=== PATIENT | female | born 1940 | race Caucasian/White ===

== ENCOUNTER 2021-03-18 04:06 | Emergency (ER) | payer MEDICARE ==
[2021-03-18] MEDS ORDERED: Boostrix 0.5 ML (Tdap) VIAL ONE (04:53)
[2021-03-18] MEDS ORDERED: Bacitracin 1 PK ONE (04:53)
== END 2021-03-18 06:20 | disposition home or self-care (01) ==
LOC: MADERS 04:06
DX: S40.021A Contusion of right upper arm, initial encounter (principal); E03.9 Hypothyroidism, unspecified; K21.9 Gastro-esophageal reflux disease without esophagitis; I11.0 Hypertensive heart disease with heart failure; I50.9 Heart failure, unspecified; Z79.899 Other long term (current) drug therapy; W19.XXXA Unspecified fall, initial encounter
CPT/HCPCS: 70450; 72125; 90471; 90715

== ENCOUNTER 2021-06-03 18:57 | Emergency (ER) | payer MEDICARE ==
[2021-06-03 20:57] LABS: #Basophils 0.1 thou/uL (0.0-0.2); #Lymphocytes 1.9 thou/uL (1.20-3.40); #Monocytes 0.8 thou/uL (0.11-0.59); #Neutrophils 12.8 thou/uL (1.40-6.50); %Basophils 0.6 % (0.0-1.0); %Eosinophils 0.1 % (0.0-10.0); %Monocytes 4.9 % (0.0-10.0); %Neutrophils 82.5 % (42.0-75.0); Burr Cells SLIGHT = 2-5 cells (100X) (0-1/hpf); Hemoglobin 12.6 g/dL (12.0-16.0); MDiff Complete? YES; Macrocytosis SLIGHT = 6-15 cells (100X) (0-5/hpf); Mean Corpuscular HGB CONC 33.3 g/dL (32.0-36.0); Mean Corpuscular Hemoglobin 35.7 pg (27.0-31.0); Mean Corpuscular Volume 107.2 fL (78.0-98.0); Mean Platelet Volume 8.4 fL (7.4-10.4); PTT 23.4 sec (22.9-36.1); Platelet Count 123 thou/uL (130-400); Platelet Morphology Comment Appears Adequate; Prothrombin Time 13.3 sec (12.0-14.7); RBC Distribution Width 14.7 % (11.5-14.5); Red Blood Cell (RBC) Count 3.53 mill/uL (4.20-5.40); White Blood Cell (WBC) Count 15.6 thou/uL (4.8-10.8)
[2021-06-03 21:07] LABS: ALT (SGPT) 24 U/L (8-55); AST (SGOT) 34 U/L (5-34); Albumin 3.5 g/dL (3.4-4.8); Alkaline Phosphatase 112 U/L (40-110); Anion Gap 16 mmol/L (10-20); BUN (Urea Nitrogen) 13 mg/dL (9.8-20.1); Bilirubin, Total 1.1 mg/dL (0.2-1.2); Calc. Creatinine Clearance 0 mL/min (70-130); Calcium 9.4 mg/dL (7.8-10.44); Carbon Dioxide 28 mmol/L (23-31); Chloride 99 mmol/L (98-107); Globulin 3.6 g/dL (2.4-3.5); Glucose 116 mg/dL (83-110); Potassium 3.9 mmol/L (3.5-5.1); Protein, Total 7.1 g/dL (5.8-8.1); Sodium 139 mmol/L (136-145)
[2021-06-03 21:49] LABS: SARS-CoV-2 NAA Rapid Test Not Detected (NotDetected)
[2021-06-03 23:08] LABS: Bilirubin Negative (Negative); Blood, Urine Negative (Negative); Glucose, Urine (Dipstick) Negative (Negative); Ketone, Urine Negative (Negative); Leukocyte Trace (Negative); Nitrite Negative (Negative); Protein, Urine (Dipstick) Negative (Neg-Trace); Urobilinogen 0.2 mg/dL (Less than 2); pH, Urine 8.5 (5.0-9.0)
[2021-06-03 23:09] LABS: Bacteria/HPF 2+ HPF (None Seen); Clarity Slightly Cloudy (Clear); RBC/HPF 0-3 HPF (0-3)
== END 2021-06-03 23:06 | disposition short-term general hospital (02) ==
LOC: MADERS 18:57
DX: S06.300A Unspecified focal traumatic brain injury without loss of consciousness, initial encounter (principal); S72.002A Fracture of unspecified part of neck of left femur, initial encounter for closed fracture; S60.222A Contusion of left hand, initial encounter; R60.0 Localized edema; E03.9 Hypothyroidism, unspecified; K21.9 Gastro-esophageal reflux disease without esophagitis; I11.0 Hypertensive heart disease with heart failure; I50.9 Heart failure, unspecified; F17.200 Nicotine dependence, unspecified, uncomplicated; Z79.02 Long term (current) use of antithrombotics/antiplatelets; Z79.899 Other long term (current) drug therapy; W18.30XA Fall on same level, unspecified, initial encounter
CPT/HCPCS: 51702; 70450; 72125; 72170; 72220; 80053; 81003; 81015; 85025; 85610; 85730; U0002

== ENCOUNTER 2021-06-11 15:40 | Inpatient (IN) | payer MEDICARE ==
[2021-06-11] MEDS: Acetaminophen 500 MG TAB PO SCH (18:08)
[2021-06-11] MEDS: Donepezil HCl 10 MG TAB PO SCH (20:12)
[2021-06-11] MEDS: Carvedilol 6.25 MG TAB PO SCH (20:12)
[2021-06-11] MEDS: Gabapentin 300 MG CAP PO SCH (20:12)
[2021-06-11] MEDS: Furosemide 40 MG TAB PO SCH (20:12)
[2021-06-12] MEDS: Acetaminophen 500 MG TAB PO SCH ×5 (00:42→23:48)
[2021-06-12] MEDS: traMADol HCl 50 MG TAB PO PRN ×3 (02:54→20:50)
[2021-06-12] MEDS: Levothyroxine Sodium 75 MCG TAB PO SCH (05:51)
[2021-06-12] MEDS ORDERED: FLU VACC QS2021-22(65YR UP)/PF 240 MCG/0.7 ML SYRINGE IM ONE (09:00)
[2021-06-12] MEDS: Atorvastatin Calcium 40 MG TAB PO SCH (09:34)
[2021-06-12] MEDS: Clopidogrel Bisulfate 75 MG TAB PO SCH (09:34)
[2021-06-12] MEDS: Carvedilol 6.25 MG TAB PO SCH ×2 (09:34→20:45)
[2021-06-12] MEDS: Potassium Chloride 10 MEQ TAB PO SCH (09:34)
[2021-06-12] MEDS: Furosemide 40 MG TAB PO SCH ×2 (09:35→20:58)
[2021-06-12] MEDS: Citalopram 20 MG TAB PO SCH (09:35)
[2021-06-12] MEDS: Famotidine 20 MG TAB PO SCH (10:03)
[2021-06-12 10:38] LABS: Anion Gap 11 mmol/L (10-20); BUN (Urea Nitrogen) 9 mg/dL (9.8-20.1); Calc. Creatinine Clearance 90 mL/min (70-130); Calcium 8.4 mg/dL (7.8-10.44); Carbon Dioxide 29 mmol/L (23-31); Chloride 105 mmol/L (98-107); Glucose 118 mg/dL (83-110); Potassium 3.8 mmol/L (3.5-5.1); Sodium 141 mmol/L (136-145)
[2021-06-12 10:44] LABS: #Basophils 0.1 thou/uL (0.0-0.2); #Eosinphils 0.2 thou/uL (0.0-0.7); #Lymphocytes 2.6 thou/uL (1.20-3.40); #Monocytes 0.8 thou/uL (0.11-0.59); #Neutrophils 5.7 thou/uL (1.40-6.50); %Basophils 0.6 % (0.0-1.0); %Eosinophils 1.9 % (0.0-10.0); %Lymphocytes 28.2 % (21.0-51.0); %Monocytes 8.2 % (0.0-10.0); %Neutrophils 61.1 % (42.0-75.0); Hemoglobin 8.3 g/dL (12.0-16.0); MDiff Complete? YES; Macrocytosis SLIGHT = 6-15 cells (100X) (0-5/hpf); Mean Corpuscular HGB CONC 34.2 g/dL (32.0-36.0); Mean Corpuscular Hemoglobin 36.5 pg (27.0-31.0); Mean Corpuscular Volume 106.9 fL (78.0-98.0); Mean Platelet Volume 7.2 fL (7.4-10.4); Platelet Count 190 thou/uL (130-400); Platelet Morphology Comment Appears Adequate; RBC Distribution Width 16.3 % (11.5-14.5); Red Blood Cell (RBC) Count 2.27 mill/uL (4.20-5.40); White Blood Cell (WBC) Count 9.4 thou/uL (4.8-10.8)
[2021-06-12] MEDS ORDERED: Ferrous Sulfate 325 MG TAB PO SCH (11:00)
[2021-06-12] MEDS: Ferrous Sulfate 325 MG TAB PO SCH (11:27)
[2021-06-12] MEDS: Donepezil HCl 10 MG TAB PO SCH (20:46)
[2021-06-12] MEDS: Gabapentin 300 MG CAP PO SCH (20:49)
[2021-06-13] MEDS: Acetaminophen 500 MG TAB PO SCH ×3 (05:58→17:27)
[2021-06-13] MEDS: Levothyroxine Sodium 75 MCG TAB PO SCH (05:58)
[2021-06-13] MEDS: Potassium Chloride 10 MEQ TAB PO SCH (08:41)
[2021-06-13] MEDS: Citalopram 20 MG TAB PO SCH (08:42)
[2021-06-13] MEDS: Carvedilol 6.25 MG TAB PO SCH ×2 (08:42→20:28)
[2021-06-13] MEDS: Furosemide 40 MG TAB PO SCH ×2 (08:42→20:29)
[2021-06-13] MEDS: Clopidogrel Bisulfate 75 MG TAB PO SCH (08:42)
[2021-06-13] MEDS: Famotidine 20 MG TAB PO SCH (08:42)
[2021-06-13] MEDS: Atorvastatin Calcium 40 MG TAB PO SCH (08:42)
[2021-06-13] MEDS: traMADol HCl 50 MG TAB PO PRN (16:25)
[2021-06-13] MEDS: Donepezil HCl 10 MG TAB PO SCH (20:24)
[2021-06-13] MEDS: Gabapentin 300 MG CAP PO SCH (20:24)
[2021-06-13 23:35] LABS: SARS-CoV-2 PCR by NAA Not Detected (NotDetected)
[2021-06-14] MEDS: Acetaminophen 500 MG TAB PO SCH ×5 (00:20→23:58)
[2021-06-14] MEDS: traMADol HCl 50 MG TAB PO PRN ×2 (05:32→15:54)
[2021-06-14] MEDS: Levothyroxine Sodium 75 MCG TAB PO SCH (05:32)
[2021-06-14] MEDS: Atorvastatin Calcium 40 MG TAB PO SCH (08:36)
[2021-06-14] MEDS: Ferrous Sulfate 325 MG TAB PO SCH (08:37)
[2021-06-14] MEDS: Citalopram 20 MG TAB PO SCH (08:37)
[2021-06-14] MEDS: Carvedilol 6.25 MG TAB PO SCH ×2 (08:37→20:36)
[2021-06-14] MEDS: Clopidogrel Bisulfate 75 MG TAB PO SCH (08:37)
[2021-06-14] MEDS: Furosemide 40 MG TAB PO SCH ×2 (08:37→20:36)
[2021-06-14] MEDS: Famotidine 20 MG TAB PO SCH (08:37)
[2021-06-14] MEDS: Potassium Chloride 10 MEQ TAB PO SCH (08:37)
[2021-06-14] MEDS ORDERED: Methotrexate Sodium 2.5 MG TAB PO SCH ×2 (09:00)
[2021-06-14] MEDS: Gabapentin 300 MG CAP PO SCH (20:36)
[2021-06-14] MEDS: Donepezil HCl 10 MG TAB PO SCH (20:36)
[2021-06-15] MEDS: Acetaminophen 500 MG TAB PO SCH ×3 (05:59→17:24)
[2021-06-15] MEDS: Levothyroxine Sodium 75 MCG TAB PO SCH (06:01)
[2021-06-15] MEDS: Potassium Chloride 10 MEQ TAB PO SCH (08:56)
[2021-06-15] MEDS: Carvedilol 6.25 MG TAB PO SCH ×2 (08:56→20:45)
[2021-06-15] MEDS: Ferrous Sulfate 325 MG TAB PO SCH (08:56)
[2021-06-15] MEDS: Citalopram 20 MG TAB PO SCH (08:56)
[2021-06-15] MEDS: Furosemide 40 MG TAB PO SCH ×2 (08:56→20:45)
[2021-06-15] MEDS: Atorvastatin Calcium 40 MG TAB PO SCH (08:56)
[2021-06-15] MEDS: Famotidine 20 MG TAB PO SCH (08:57)
[2021-06-15] MEDS: Clopidogrel Bisulfate 75 MG TAB PO SCH (08:57)
[2021-06-15] MEDS: Donepezil HCl 10 MG TAB PO SCH (20:45)
[2021-06-15] MEDS: Gabapentin 300 MG CAP PO SCH (20:46)
[2021-06-16] MEDS: Acetaminophen 500 MG TAB PO SCH ×4 (00:11→16:59)
[2021-06-16] MEDS: Levothyroxine Sodium 75 MCG TAB PO SCH (05:54)
[2021-06-16] MEDS: traMADol HCl 50 MG TAB PO PRN ×2 (05:54→13:03)
[2021-06-16] MEDS: Potassium Chloride 10 MEQ TAB PO SCH (08:26)
[2021-06-16] MEDS: Atorvastatin Calcium 40 MG TAB PO SCH (08:26)
[2021-06-16] MEDS: Ferrous Sulfate 325 MG TAB PO SCH (08:26)
[2021-06-16] MEDS: Furosemide 40 MG TAB PO SCH ×2 (08:26→21:46)
[2021-06-16] MEDS: Famotidine 20 MG TAB PO SCH (08:26)
[2021-06-16] MEDS: Carvedilol 6.25 MG TAB PO SCH ×2 (08:26→21:45)
[2021-06-16] MEDS: Citalopram 20 MG TAB PO SCH (08:26)
[2021-06-16] MEDS: Clopidogrel Bisulfate 75 MG TAB PO SCH (08:27)
[2021-06-16] MEDS ORDERED: Methotrexate Sodium 2.5 MG TAB PO SCH (09:00)
[2021-06-16] MEDS: Donepezil HCl 10 MG TAB PO SCH (21:46)
[2021-06-16] MEDS: Gabapentin 300 MG CAP PO SCH (21:46)
[2021-06-17] MEDS: Acetaminophen 500 MG TAB PO SCH ×4 (00:03→17:31)
[2021-06-17] MEDS: Levothyroxine Sodium 75 MCG TAB PO SCH (06:11)
[2021-06-17] MEDS: Famotidine 20 MG TAB PO SCH (09:21)
[2021-06-17] MEDS: Atorvastatin Calcium 40 MG TAB PO SCH (09:21)
[2021-06-17] MEDS: Furosemide 40 MG TAB PO SCH ×2 (09:21→21:33)
[2021-06-17] MEDS: Carvedilol 6.25 MG TAB PO SCH ×2 (09:21→21:33)
[2021-06-17] MEDS: Citalopram 20 MG TAB PO SCH (09:21)
[2021-06-17] MEDS: Ferrous Sulfate 325 MG TAB PO SCH (09:21)
[2021-06-17] MEDS: Clopidogrel Bisulfate 75 MG TAB PO SCH (09:21)
[2021-06-17] MEDS: Potassium Chloride 10 MEQ TAB PO SCH (09:22)
[2021-06-17] MEDS: Gabapentin 300 MG CAP PO SCH (21:33)
[2021-06-17] MEDS: Donepezil HCl 10 MG TAB PO SCH (21:33)
[2021-06-18] MEDS: Acetaminophen 500 MG TAB PO SCH ×5 (00:34→23:31)
[2021-06-18] MEDS: Levothyroxine Sodium 75 MCG TAB PO SCH (05:54)
[2021-06-18] MEDS: Ferrous Sulfate 325 MG TAB PO SCH (09:15)
[2021-06-18] MEDS: Atorvastatin Calcium 40 MG TAB PO SCH (09:15)
[2021-06-18] MEDS: Famotidine 20 MG TAB PO SCH (09:15)
[2021-06-18] MEDS: Potassium Chloride 10 MEQ TAB PO SCH (09:15)
[2021-06-18] MEDS: Furosemide 40 MG TAB PO SCH ×2 (09:16→20:23)
[2021-06-18] MEDS: Clopidogrel Bisulfate 75 MG TAB PO SCH (09:16)
[2021-06-18] MEDS: Citalopram 20 MG TAB PO SCH (09:16)
[2021-06-18] MEDS: Carvedilol 6.25 MG TAB PO SCH ×2 (09:16→20:23)
[2021-06-18] MEDS: Donepezil HCl 10 MG TAB PO SCH (20:22)
[2021-06-18] MEDS: Gabapentin 300 MG CAP PO SCH (20:23)
[2021-06-19] MEDS: Levothyroxine Sodium 75 MCG TAB PO SCH (05:58)
[2021-06-19] MEDS: Acetaminophen 500 MG TAB PO SCH ×3 (05:58→17:59)
[2021-06-19] MEDS: Ferrous Sulfate 325 MG TAB PO SCH (08:40)
[2021-06-19] MEDS: Atorvastatin Calcium 40 MG TAB PO SCH (08:40)
[2021-06-19] MEDS: Citalopram 20 MG TAB PO SCH (08:41)
[2021-06-19] MEDS: Clopidogrel Bisulfate 75 MG TAB PO SCH (08:41)
[2021-06-19] MEDS: Carvedilol 6.25 MG TAB PO SCH ×2 (08:41→20:45)
[2021-06-19] MEDS: Furosemide 40 MG TAB PO SCH ×2 (08:41→20:45)
[2021-06-19] MEDS: Famotidine 20 MG TAB PO SCH (08:41)
[2021-06-19] MEDS: Potassium Chloride 10 MEQ TAB PO SCH (08:41)
[2021-06-19] MEDS: Gabapentin 300 MG CAP PO SCH (20:45)
[2021-06-19] MEDS: Donepezil HCl 10 MG TAB PO SCH (20:45)
[2021-06-20] MEDS: Acetaminophen 500 MG TAB PO SCH ×5 (00:03→23:38)
[2021-06-20] MEDS: Levothyroxine Sodium 75 MCG TAB PO SCH (05:43)
[2021-06-20] MEDS: Potassium Chloride 10 MEQ TAB PO SCH (09:01)
[2021-06-20] MEDS: Atorvastatin Calcium 40 MG TAB PO SCH (09:01)
[2021-06-20] MEDS: Famotidine 20 MG TAB PO SCH (09:02)
[2021-06-20] MEDS: Furosemide 40 MG TAB PO SCH (09:02)
[2021-06-20] MEDS: Clopidogrel Bisulfate 75 MG TAB PO SCH (09:02)
[2021-06-20] MEDS: Ferrous Sulfate 325 MG TAB PO SCH (09:02)
[2021-06-20] MEDS: Citalopram 20 MG TAB PO SCH (09:02)
[2021-06-20] MEDS: Carvedilol 6.25 MG TAB PO SCH (09:02)
[2021-06-20 11:26] VITALS: BMI 26.3
[2021-06-20] MEDS: Donepezil HCl 10 MG TAB PO SCH (22:07)
[2021-06-20] MEDS: Gabapentin 300 MG CAP PO SCH (22:07)
[2021-06-20] MEDS: Carvedilol 3.125 MG TAB PO SCH (22:08)
[2021-06-21] MEDS: Levothyroxine Sodium 75 MCG TAB PO SCH (05:29)
[2021-06-21] MEDS: Acetaminophen 500 MG TAB PO SCH ×2 (05:29→12:37)
[2021-06-21 08:09] VITALS: BP 111/65; TEMP 98.3
[2021-06-21] MEDS ORDERED: Furosemide 20 MG TAB PO SCH (09:00)
[2021-06-21] MEDS: Famotidine 20 MG TAB PO SCH (09:13)
[2021-06-21] MEDS: Clopidogrel Bisulfate 75 MG TAB PO SCH (09:13)
[2021-06-21] MEDS: Citalopram 20 MG TAB PO SCH (09:13)
[2021-06-21] MEDS: Atorvastatin Calcium 40 MG TAB PO SCH (09:14)
[2021-06-21] MEDS: Ferrous Sulfate 325 MG TAB PO SCH (09:14)
[2021-06-21] MEDS: Potassium Chloride 10 MEQ TAB PO SCH (09:14)
[2021-06-21] MEDS: Carvedilol 3.125 MG TAB PO SCH (09:14)
== END 2021-06-21 16:35 | disposition hospice, home (50) | DRG 948 ==
LOC: MADMS 15:40
PROVIDERS: ADMIT Family Medicine; ATTEND Family Medicine
DX: R53.81 Other malaise (principal); F03.91 Unspecified dementia, unspecified severity, with behavioral disturbance; I10 Essential (primary) hypertension; I25.10 Atherosclerotic heart disease of native coronary artery without angina pectoris; E03.9 Hypothyroidism, unspecified; K21.9 Gastro-esophageal reflux disease without esophagitis; E78.5 Hyperlipidemia, unspecified; Z96.653 Presence of artificial knee joint, bilateral; D64.9 Anemia, unspecified; D69.6 Thrombocytopenia, unspecified; R26.89 Other abnormalities of gait and mobility; Z20.822 Contact with and (suspected) exposure to COVID-19; Z66 Do not resuscitate; I95.1 Orthostatic hypotension; Z79.02 Long term (current) use of antithrombotics/antiplatelets; Z79.899 Other long term (current) drug therapy; Z87.891 Personal history of nicotine dependence; Z85.3 Personal history of malignant neoplasm of breast; Z90.49 Acquired absence of other specified parts of digestive tract; Z51.5 Encounter for palliative care; Z74.01 Bed confinement status
CPT/HCPCS: 36415; 80048; 85025; J8610; U0003; U0005